=== PATIENT | male | born 1995 | race Caucasian/White ===

== ENCOUNTER 2017-12-19 13:12 | Emergency (ER) | payer OTHER ==
[2017-12-19 13:33] VITALS: BP 123/79
--- NOTE | 2017-12-19 13:52 | UC ---
Back Pain HPI - HPI Summary HPI Summary: A 22 y/o M presents to [facility] with c/o lower back pain onset 2-3 weeks ago and worsening severely last night. The pain woke him from sleep and shoots down his RLE. Aggravating factors: movement. Denies weakness and numbness, urinary and bowel changes. He thinks he was lifting something at initial onset of the pain. Took IBP at 0100 to no relief. - History of Current Complaint Chief Complaint: UCBackPain Stated Complaint: BACK PAIN Time Seen by Provider: 12/19/17 13:46 Hx Obtained From: Patient Onset/Duration: Lasting Weeks, Still Present Timing: Constant Severity Initially: Moderate Severity Currently: Severe Pain Intensity: 8 Pain Scale Used: 0-10 Numeric Aggravating Factor(s): Movement, Bending Alleviating Factor(s): Nothing Associated Signs And Symptoms: Negative: Weakness, Numbness, Bladder Incontinence, Bowel Incontinence - Allergies/Home Medications Allergies/Adverse Reactions: Allergies Allergy/AdvReac Type Severity Reaction Status Date / Time Penicillins Allergy Hives Verified 12/19/17 13:33 Sulfa (Sulfonamide Allergy Hives Verified 12/19/17 13:33 Antibiotics) bee sting Allergy Severe Swelling Uncoded 12/19/17 13:33 PMH/Surg Hx/FS Hx/Imm Hx Previously Healthy: Yes Other Endocrine History: neg: thyroid dz Other Cardiovascular History: neg: HTN Respiratory History: Asthma - childhood Psychological History: Depression - Surgical History Surgical History: None - Family History Known Family History: Negative: Hypertension, Diabetes - Social History Occupation: Employed Full-time Lives: Alone Alcohol Use: Occasionally Substance Use Type: None Smoking Status (MU): Former Smoker Amount Used/How Often: Feb 2014 Have You Smoked in the Last Year: No When Did the Patient Quit Smoking/Using Tobacco: 2 YRS AGO - Immunization History Most Recent Influenza Vaccination: never Most Recent Tetanus Shot: up to date Review of Systems Constitutional: Other - neg: fever Genitourinary: Other - neg: urinary and bowel changes Musculoskeletal: Other: - pos: back pain Neurological: Other - neg: weakness, numbness All Other Systems Reviewed And Are Negative: Yes Physical Exam - Summary Physical Exam Summary: General: well-appearing, no pain distress Skin: warm, color reflects adequate perfusion, dry Head: normal Eyes: EOMI, AMY ENT: normal Neck: supple, nontender Respiratory: CTA, breath sounds present Cardiovascular: RRR Abdomen: soft, nontender Bowel: present Musculoskeletal: tenderness to palpation over lower back and paraspinous at L3- L5, pain with R leg raise. Neurological: sensory/motor intact, A&O x3 Psychological: affect/mood appropriate Triage Information Reviewed: Yes Vital Signs: Initial Vital Signs Temp 98.5 F 12/19/17 13:30 Pulse 64 12/19/17 13:30 Resp 18 12/19/17 13:30 BP 123/79 12/19/17 13:30 Pulse Ox 100 12/19/17 13:30 Vital Signs Reviewed: Yes Diagnostics - Laboratory Diagnostic Studies Completed/Ordered: L SPINE XR as read by radiologist: IMPRESSION: NO PLAIN RADIOGRAPHIC ABNORMALITIES. [facility] provider has reviewed this report. Back Pain Course/Dx - Course Course Of Treatment: BP noted. Medications reviewed. Allergies noted. NO NEUROLOGIC DEFICIT ON EXAM OR BY HISTORY. F/U PMD; RECHECK SOONER IF WORSE. - Differential Dx/Diagnosis Provider Diagnoses: low back pain Discharge - Sign-Out/Discharge Documenting (check all that apply): Patient Departure - DC All imaging exams completed and their final reports reviewed: Yes - Discharge Plan Condition: Stable Disposition: HOME Prescriptions: Cyclobenzaprine TAB* [Flexeril 10 MG TAB*] 10 mg PO TID PRN #15 tab PRN Reason: Pain HYDROcodone/ACETAMIN 5-325 MG* [[place] 5-325 TAB*] 1 tab PO Q4H PRN #20 tab MDD 6 PRN Reason: Pain Patient Education Materials: Acute Low Back Pain (ED), Lower Back Exercises (ED ) Referrals: Soren Fleming MD [Primary Care Provider] - Additional Instructions: FOLLOW UP WITH YOUR DOCTOR IF NOT COMPLETELY IMPROVED. GET RECHECKED FOR ANY WORSENING OF YOUR CONDITION; WEAKNESS, NUMBNESS, DIFFICULTY CONTROLLING BOWEL OR BLADDER, OR QUESTIONS OR CONCERNS. - Billing Disposition and Condition Condition: STABLE Disposition: Home - Attestation Statements Document Initiated by Scribe: Yes Documenting Scribe: Zulay Menon Provider For Whom Scribe is Documenting (Include Credential): Alfred Caballero MD Scribe Attestation: Zulay Givens, scribed for Alfred Caballero MD on 12/19/17 at 1451. Scribe Documentation Reviewed: Yes Provider Attestation: The documentation as recorded by the Zulay kaye accurately reflects the service I personally performed and the decisions made by me, Alfred Caballero MD
[2017-12-19] MEDS ORDERED: Ibuprofen TAB* 600 MG PO ONE (13:56)
--- NOTE | 2017-12-19 14:24 | RAD ---
INDICATION: Back pain COMPARISON: None TECHNIQUE: Routine PA, lateral, and oblique imaging was performed . FINDINGS: Bones: There are no acute bony findings. There are no significant osteoarthritic findings. Alignment: Normal Disc spaces: The disc spaces are well-maintained Soft tissues: There are no soft tissue abnormalities. IMPRESSION: NO PLAIN RADIOGRAPHIC ABNORMALITIES.
== END 2017-12-19 14:58 | disposition home or self-care (01) ==
LOC: UCEAST 13:12
DX: M54.5 Low back pain (principal); Z88.0 Allergy status to penicillin; Z88.2 Allergy status to sulfonamides; Z91.030 Bee allergy status; Z87.891 Personal history of nicotine dependence
CPT/HCPCS: 72110; 99212; A9270-GY; G0463